=== PATIENT | female | born 2005 | race Caucasian/White ===

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

== ENCOUNTER 2024-12-06 10:04 | Emergency (ER) | payer SELFPAY ==
[2024-12-06] MEDS ORDERED: predniSONE 20 MG TAB ONE (10:42)
== END 2024-12-06 11:34 | disposition home or self-care (01) ==
LOC: ERS 10:04
DX: J18.9 Pneumonia, unspecified organism (principal); J32.0 Chronic maxillary sinusitis; F17.290 Nicotine dependence, other tobacco product, uncomplicated
CPT/HCPCS: 71046; 87081; 87428; 87430; J7512

== ENCOUNTER 2025-01-06 13:33 | Emergency (ER) | payer SELFPAY ==
[2025-01-06] MEDS ORDERED: Ibuprofen 200 MG TAB ONE (14:46)
== END 2025-01-06 14:53 | disposition home or self-care (01) ==
LOC: ERS 13:33
DX: S93.401A Sprain of unspecified ligament of right ankle, initial encounter (principal); F17.290 Nicotine dependence, other tobacco product, uncomplicated; X50.1XXA Overexertion from prolonged static or awkward postures, initial encounter
CPT/HCPCS: 99283